=== PATIENT | female | born 1990 | race Caucasian/White ===

== ENCOUNTER 2020-12-30 10:32 | Emergency (ER) | payer MEDICAID ==
[~2020-12-30] VITALS: Ht 162.6 cm; Wt 61.2 kg
[2020-12-30 10:32] VITALS: BP_SYST 107
--- NOTE | 2020-12-30 10:33 | NUR ---
Patient to ER bed 1 to gown for evaluation. Side rails up. Report given to Helga MCCABE.
--- NOTE | 2020-12-30 10:36 | NUR ---
DR SHAFFER AT BEDSIDE FOR EXAM.
--- NOTE | 2020-12-30 10:53 | NUR ---
PT SANFORD FROM [facility], PT REPORTS SHE WAS GETTING BLOOD DRAWN FOR SCHEDULED PRE-EMPLOYMENT WHEN SHE FAINTED, PT TEARFUL SHE TELLS ME ABOUT WHAT HAPPENED. STATES SHE'S NEVER FAINTED BEFORE AND SHE WAS SCARED, PT REASSURED THAT SHE IS SAFE AND WILLBE TAKEN CARE. PT AAOX3, DENIES ANY PAIN OR SOB, DENIES HISTORY OF ANXIETY, JUST WORRIED ABOUT NOT STARTING WORK ON TIME. SKIN W/D/I, WILLCONT TO MONITOR.
[2020-12-30 11:04] LABS: BASOPHILS # (AUTO) 0.1 K/uL (0.0-0.2); BASOPHILS % (AUTO) 0.7 % (0.0-2.0); EOSINOPHILS # (AUTO) 0.1 K/uL (0.0-0.4); EOSINOPHILS % (AUTO) 0.6 % (0.0-4.0); HEMATOCRIT 36.7 % (36-48); HEMOGLOBIN 12.4 g/dL (12.0-16.0); LYMPHOCYTES # (AUTO) 1.6 K/uL (1.0-5.5); LYMPHOCYTES % (AUTO) 17.3 % (20.5-51.5); MEAN CORPUSCULAR HEMOGLOBIN 31 pg (27-31); MEAN CORPUSCULAR HGB CONC 34 % (32-36); MEAN CORPUSCULAR VOLUME 90 fL (79.0-98.0); MONOCYTES # (AUTO) 0.4 K/uL (0.0-1.0); MONOCYTES % (AUTO) 4.4 % (1.7-9.3); NEUTROPHILS # (AUTO) 7.2 K/uL (1.8-7.7); PLATELET COUNT (AUTO) 300 K/uL (130-430); RED BLOOD CELL COUNT(AUTO) 4.06 MIL/uL (4.2-6.2); RED CELL DISTRIBUTION WIDTH 13.3 % (9.0-15.0); WHITE BLOOD COUNT (AUTO) 9.4 K/uL (4.8-10.8)
[2020-12-30 11:24] LABS: INR 0.9 (0.8-1.2); PROTHROMBIN TIME 9.9 SECS (9.5-12.5)
[2020-12-30 11:32] LABS: ALBUMIN 4.1 g/dL (3.4-4.8); CREATININE 0.84 mg/dL (0.55-1.30); TOTAL BILIRUBIN 0.4 mg/dL (0.0-1.0)
--- NOTE | 2020-12-30 12:45 | NUR ---
NO ACUTE CHNAGES IN CONDITON, PT IN NAD. FAMILY AT BEDSIDE.
[2020-12-30 13:02] VITALS: BP_SYST 99
--- NOTE | 2020-12-30 13:07 | NUR ---
DC WITH [facility], PT INFORMED TO F/U WITH PCP. VSS
== END 2020-12-30 13:07 | disposition home or self-care (01) ==
LOC: SED 10:32
DX: R55 Syncope and collapse (principal)
CPT/HCPCS: 36415; 71045; 80053; 81025; 82550; 83605; 84484; 85025; 85610-TC; 85730-TC; 93005; 99285